=== PATIENT | female | born 1955 | race Caucasian/White ===

== ENCOUNTER 2024-02-23 15:25 | Emergency (ER) | payer MEDICARE, OTHER, SELFPAY ==
[2024-02-23 15:27] VITALS: BP 135/84
[2024-02-23 15:47] LABS: % Basophils 0.6 % (0-2); % Eosinophils 1.2 % (0-6); % Immature Granulocytes 0.4 % (0-0.5); % Lymphocytes 39.1 % (20.5-51.1); % Monocytes 8.1 % (1.7-9.3); % Neutrophils 50.6 % (42.2-75.2); Absolute Basophils 0.1 10^3/uL (0-0.2); Absolute Eosinophils 0.1 10^3/uL (0-0.7); Absolute Lymphocytes 3.2 10^3/uL (1.2-3.4); Absolute Monocytes 0.7 10^3/uL (0.1-0.6); Absolute Neutrophils 4.2 10^3/uL (1.4-6.5); Hematocrit 38.3 % (37.0-47.0); Hemoglobin 12.7 g/dL (12.0-16.0); Mean Corp Hgb Conc. 33.2 g/dL (33.0-37.0); Mean Corpuscular Hgb 28.5 pg (27.0-31.0); Mean Corpuscular Volume 86.1 fL (81.0-99.0); Mean Platelet Volume 9.2 fL (7.4-10.4); Nucleated Red Blood Cells % 0 %; Platelet Count 280 10^3/uL (130-400); Red Blood Cell Count 4.45 10^6/uL (4.20-5.40); Red Cell Dist. Width 13.9 % (11.5-14.5); White Blood Cell Count 8.3 10^3/uL (4.8-10.8)
[2024-02-23 16:00] LABS: ALT (SGPT) 18 U/L (0-35); AST (SGOT) 24 U/L (14-36); Albumin 4.4 g/dl (3.5-5.0); Alkaline Phosphatase 86 U/L (38-126); Blood Urea Nitrogen 23 mg/dl (7-17); Calcium 10.4 mg/dl (8.4-10.2); Carbon Dioxide 26 mmol/L (22-30); Chloride 101 mmol/L (98-107); Glucose 107 mg/dl (70-99); Potassium 4.2 mmol/L (3.5-5.1); Sodium 134 mmol/L (135-145); Total Bilirubin 0.5 mg/dl (0.2-1.3); Total Protein 6.7 g/dl (6.3-8.2); eGFR > 60.00
[2024-02-23 16:02] LABS: COVID-19 Antigen Negative (Negative)
[2024-02-23 16:05] VITALS: BP 142/94
--- NOTE | 2024-02-23 16:08 | ED.GENMED ---
History of Present Illness
General
Chief Complaint: Breathing Problem
Source: patient
Exam Limitations: none
Time Seen by Provider: 02/23/24 15:27
Nursing documentation reviewed up to this point in time: agreed with
Travel History
Have you had any contact with someone who has COVID-19?: No
Do you have any symptoms of coronavirus? Fever > 100 degrees, chills, cough, shortness of breath, sore throat, loss of taste or smell, muscle aches, or headache?: No
History of Present Illness
History of Present Illness:
pt is a 69 y/o F with h/o HTN, mild copd
here with sob x 1 week
pt says she has been noticing that over the past week, she ssems to be winded/fatigued with exertion
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 she doesn't really have help
she has been noticing that after bathing him etc she has needed to sit down and rest and this is unusual
she has never had this before
she also has had an intermittent chest pressure off and on the past week
today after getting him bathed, she was more sob than usual so she called 911.
her duaghter is with her now
she has not had fever, cough, leg swelling, syncope, pleuritic pain, h/o dvt/pe, nauesa, vomiting, diarpohesis
Past History
Past History
ED Past Medical History: Other (chronic sinus issues)
ED Past Surgical History: Gynecological (bleeding uterine polyp removed, hemorrhoids removed), Tonsilectomy and Other (nasal sinus surgery X 2)
Phy Exam
Physical Exam
Physical Exam:
GENERAL: Alert , in no apparent distress
EYE: pupils equal and reactive
NECK: Supple
ENT: o/p clr, mmm.
CARDIAC: Regular rate and rhythm .no edema
LUNGS: faint diminished throughout, no crackles ,no rhonchi, no dyspnea, speaking full sentences;
ABDOMEN: Soft, without focal tenderness, no r/g, no cvat, normal bowel sounds
NEUROLOGICAL: Alert and oriented, no focal neuro deficits
SKIN: Warm and dry, skin intact.
MUSCULOSKELETAL: No edema, well perfused. neg trevor's sign
PSYCH: Normal and appropriate interaction.; tearful when speaking about her stress
Scores
Heart Failure Risk
Heart Failure Risk Score: Not Applicable
Course
Orders/Labs/Results
Orders:
Orders
02/23/24 15:32
Electrocardiogram (*1) Urgent
Reason for Study: QTc Monitoring
02/23/24 15:33
EKG- Treatment ONCE
02/23/24 15:34
Complete Blood Count/With Diff Urgent
Comprehensive Metabolic Panel Urgent
Free T4 Urgent
TSH Reflex To Free T4 Urgent
Comment: ADD ON
02/23/24 15:37
COVID-19 Antigen Urgent
Source: Nasal Swab
D-Dimer Urgent
Influenza A+B Rapid Molecular Urgent
ALLAN Source: Nasal Swab
Specimen Description:
02/23/24 16:06
Add On- LAB Urgent
Tests Added?: BNP
02/23/24 16:10
Add On- LAB Urgent
Tests Added?: tsh reflex t4
02/23/24 16:49
CR Chest - 2 Views Urgent
Comment:
Reason For Exam: chest pressure, sob
02/23/24 17:08
NT-proBNP Routine
Troponin I Urgent
02/23/24 17:48
Ipratropium/Albuterol Sulfate [Duoneb] 3 ml INH R NOW ONE
Abnormal Lab Results
02/23/24
15:34
Absolute Monos (auto) 0.7 H 10^3/uL
(0.1-0.6)
Sodium 134 L mmol/L
(135-145)
BUN 23 H mg/dl
(7-17)
Glucose 107 H mg/dl
(70-99)
Calcium 10.4 H mg/dl
(8.4-10.2)
TSH (Reflex) 0.16 L uIU/ml
(0.47-4.68)
02/23/24 15:34
02/23/24 15:34
Vital Signs
Initial and Last Documented VS:
Initial Vital Signs
Temp Pulse Resp BP Pulse Ox
97.7 F 69 14 135/84 100
02/23/24 15:27 02/23/24 15:27 02/23/24 15:27 02/23/24 15:27 02/23/24 15:27
Last Documented Vital Signs
Temp Pulse Resp BP Pulse Ox
97.7 F 64 16 142/94 98
02/23/24 15:27 02/23/24 16:45 02/23/24 16:45 02/23/24 16:05 02/23/24 16:45
Comment
Comment:
ekg nsr, no st elevation, no depression, ramon pr, normal qrs, no t wave inversion
MDM/Problems Addressed
Differential Diagnosis Includes:
chf, copd, acs, PE
MDM/Problems Addressed:
69 y/o F with htn
here with exertional fatigue, mild chest pressure intermittently x 1 week, worse today after bathing her
pt says she has had the chest heaviness all week that comes and goes
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
he requires total care
she cannot trust anyone else to care for him like she does
she does have mild COPD but doesn't really take meds for it
pt has not had fever, chills, cough, leg swelling, h/o DVT/pe
looks very comfrotable
no distress
ekg normal
vitals stable
normal exam
no murmur
ekg normal
trop neg
bnp normal
d dimer neg
hg normal
at this point, unclear cause of her symptoms
reassured that she has hd symptoms like this before, neg stress tests (followed by [facility], hasn't had stress test recently)
i do think she is stressed
but should f/u with [facility], likely another outpatient stress/echo
will try duoneb, steroids to treat mild COPD
sh ehas been coughing/allergies since the sesasons changed and does have inhaler at home
also appreciate her low tsh
she is on synthroid 50 mcg
probably should be reduced
attempted to reach PCP but told pt to call
no thyroiditis/thyrotoxicosis
d/c home
*Critical Care Note
Total Time (30-74mins, 75-104mins- exclusive of procedures): Not Applicable
ED Attending Note
-
Portions of this chart may have been created with voice recognition software.� Occasional wrong word or��sound alike� substitutions may have occurred due to the inherent limitations of voice recognition software.
Discharge Plan
Departure
Patient Disposition: Home (Routine Discharge)
Date of Disposition: 02/23/24
Time of Disposition: 18:12
Patient with high blood pressure during this ER visit?: Yes
Condition: Fair
Covid-19: Not Applicable
Discharge Problem:
Dyspnea, Chest pain, COPD (chronic obstructive pulmonary disease)
Instructions: Chest Pain (DC), Exacerbation of COPD (DC), Chest Pain NON-[facility] Helper Maintenance Cleaning Follow Up
Prescriptions:
New
prednisone 20 mg tablet
40 mg PO DAILY Qty: 8 0RF
albuterol sulfate 90 mcg/actuation HFA aerosol inhaler
2 puff inhalation Q6H PRN (Reason: shortness of breath or wheezing) Qty: 6.7 0RF
prednisone 20 mg tablet
40 mg PO DAILY Qty: 8 0RF
No Action
ondansetron 4 mg tablet,disintegrating
4 mg PO Q8H PRN (Reason: nausea and vomiting) 7 Days Qty: 20 0RF
Referrals:
Edinson Avila MD [Family Provider] - Follow up in 2-3 days
Activity Restrictions/Additional Instructions:
You are not sure the cause of your chest pain, your EKG and troponin were negative. You had no signs of a blood clot. Your lungs were hyperinflated suggestive of your COPD. There is no pneumonia. Please make sure you follow-up with your
laboratory assistant though, call on Sunday, and may be time for another stress test.
In the meantime use your inhaler as directed
I refilled your albuterol inhaler 2 puffs every 4-6 hours as needed for shortness of breath or cough. Also start prednisone once a day starting tomorrow for the next 4 days.
Watch for worsening symptoms like chest pain that is more severe, passing out, leg swelling, worsening shortness of breath and return immediately for these. Otherwise follow-up with your both your family doctor and your laboratory assistant.
YOU NEED TO CALL YOUR DOCTOR ABOUT YOUR THYROID MEDICATION
HOLD IT FOR 2 DAYS AND SPEAK TO THEM SUNDAY ABOUT WHAT TO DO WITH THE DOSE
YOUR TSH WAS 0.16
Interventions
Interventions:
*Risk Screen - Suicide Last Done: 02/23/24 15:40
*General Assessment Last Done: 02/23/24 15:40
*Neglect/Abuse Screening Last Done: 02/23/24 15:40
ED- Fall Risk Assessment Last Done: 02/23/24 15:40
*ED COVID-19 Vaccine History Last Done: 02/23/24 18:29
*Nursing Disposition Last Done: 02/23/24 18:29
ED- Cardiac Assessment Last Done: 02/23/24 15:40
ED- Pulmonary Assessment Last Done: 02/23/24 15:40
Discharge Date and Time
Discharge Date/Time: 02/23/24 18:30
Print Language: [place]
[2024-02-23 17:39] LABS: Troponin I < 0.012 ng/ml
[2024-02-23 17:48] LABS: TSH Reflex To Free T4 0.16 uIU/ml (0.47-4.68)
[2024-02-23] MEDS: DUONEB 3 ML INH (18:00)
== END 2024-02-23 18:30 | disposition home or self-care (01) ==
LOC: EMR 15:25
PROVIDERS: Physician Assistant; EMERGENCY PHYSICIAN Emergency Medicine; FAMILY PHYSICIAN Internal Medicine
DX: R07.89 Other chest pain (principal); R06.09 Other forms of dyspnea; J44.9 Chronic obstructive pulmonary disease, unspecified; I10 Essential (primary) hypertension
CPT/HCPCS: 99285; 94640; 71046; 80053; 83880; 84439; 84443; 84484; 85025; 85379; 87502; 87811; 93005

== ENCOUNTER → 2024-05-13 13:15 | Outpatient (REF) | payer MEDICARE, OTHER, SELFPAY ==
[2024-05-13 16:38] LABS: TSH Reflex To Free T4 0.17 uIU/ml (0.47-4.68)
[2024-05-13 17:07] LABS: Free T4 1.45 ng/dl (0.78-2.19)
== END ==
LOC: HWLAB 13:15
PROVIDERS: ATTENDING PHYSICIAN Internal Medicine
DX: J45.40 Moderate persistent asthma, uncomplicated (principal); I10 Essential (primary) hypertension
CPT/HCPCS: 36415; 84439; 84443

== ENCOUNTER → 2024-06-19 15:11 | Outpatient (REF) | payer MEDICARE, OTHER, SELFPAY | LOC: HWRAD 15:11 | PROVIDERS: ATTENDING PHYSICIAN Internal Medicine | DX: E04.1 Nontoxic single thyroid nodule (principal) | CPT/HCPCS: 76536 ==

== ENCOUNTER → 2024-06-23 09:46 | Outpatient (REF) | payer MEDICARE, OTHER, SELFPAY | LOC: WDC 09:46 | PROVIDERS: ATTENDING PHYSICIAN Internal Medicine | DX: N64.4 Mastodynia (principal) | CPT/HCPCS: 76642; 77062; 77066 ==

== ENCOUNTER → 2024-08-22 13:24 | Outpatient (REF) | payer MEDICARE, OTHER, SELFPAY ==
[2024-08-22 16:09] LABS: Creatine Phosphokinase 67 U/L (30-135)
[2024-08-22 16:20] LABS: Free T3 2.86 pg/ml (2.77-5.27)
[2024-08-22 16:35] LABS: TSH Reflex To Free T4 0.23 uIU/ml (0.47-4.68)
[2024-08-22 16:49] LABS: Erythrocyte Sed Rate 8 mm/hour (0-20)
[2024-08-22 17:04] LABS: Free T4 1.24 ng/dl (0.78-2.19)
== END ==
LOC: HWLAB 13:24
PROVIDERS: ATTENDING PHYSICIAN Internal Medicine
DX: E03.9 Hypothyroidism, unspecified (principal)
CPT/HCPCS: 36415; 82550; 84439; 84443; 84481; 85652

== ENCOUNTER → 2024-10-27 14:14 | Outpatient (REF) | payer MEDICARE, OTHER, SELFPAY | LOC: HWRAD 14:14 | PROVIDERS: ATTENDING PHYSICIAN Internal Medicine; FAMILY PHYSICIAN Internal Medicine | DX: R10.9 Unspecified abdominal pain (principal) | CPT/HCPCS: 76700 ==

== ENCOUNTER → 2024-11-21 13:44 | Outpatient (REF) | payer MEDICARE, OTHER, SELFPAY | LOC: HWRCS 13:44 | PROVIDERS: ATTENDING PHYSICIAN Internal Medicine Cardiovascular Disease; FAMILY PHYSICIAN Internal Medicine | DX: I10 Essential (primary) hypertension (principal); I34.1 Nonrheumatic mitral (valve) prolapse | CPT/HCPCS: 93306 ==

== ENCOUNTER → 2025-02-03 08:59 | Outpatient (REF) | payer MEDICARE, OTHER, SELFPAY ==
[2025-02-03 11:46] LABS: Urine Albumin Negative (Neg - Trace); Urine Bilirubin Negative (Negative); Urine Character Clear (Clear); Urine Color Yellow; Urine Glucose Negative (Negative); Urine Ketone Negative (Negative); Urine Leukocyte Negative (Negative); Urine Nitrite Negative (Negative); Urine Occult Blood 1+ (Negative); Urine Urobilinogen Negative (Neg - 1+)
[2025-02-03 11:55] LABS: Urine Red Blood Cell 0-2 /HPF (0-2); Urine Squamous Cell 0-2 /LPF (Few); Urine White Cell 0-2 /HPF (0-5)
[2025-02-03 12:00] LABS: % Basophils 0.9 % (0-2); % Eosinophils 1.4 % (0-6); % Immature Granulocytes 0.3 % (0-0.5); % Lymphocytes 32.9 % (20.5-51.1); % Monocytes 9.7 % (1.7-9.3); % Neutrophils 54.8 % (42.2-75.2); Absolute Basophils 0.1 10^3/uL (0-0.2); Absolute Eosinophils 0.1 10^3/uL (0-0.7); Absolute Lymphocytes 2.1 10^3/uL (1.2-3.4); Absolute Monocytes 0.6 10^3/uL (0.1-0.6); Absolute Neutrophils 3.5 10^3/uL (1.4-6.5); Hematocrit 40.8 % (37.0-47.0); Hemoglobin 13.1 g/dL (12.0-16.0); Mean Corp Hgb Conc. 32.1 g/dL (33.0-37.0); Mean Corpuscular Hgb 28.1 pg (27.0-31.0); Mean Corpuscular Volume 87.6 fL (81.0-99.0); Mean Platelet Volume 9.5 fL (7.4-10.4); Nucleated Red Blood Cells % 0 %; Platelet Count 277 10^3/uL (130-400); Red Blood Cell Count 4.66 10^6/uL (4.20-5.40); Red Cell Dist. Width 13.3 % (11.5-14.5); White Blood Cell Count 6.4 10^3/uL (4.8-10.8)
[2025-02-03 12:21] LABS: ALT (SGPT) 27 U/L (0-35); AST (SGOT) 28 U/L (14-36); Albumin 4.5 g/dl (3.5-5.0); Alkaline Phosphatase 100 U/L (38-126); Blood Urea Nitrogen 19 mg/dl (7-17); Calcium 10.3 mg/dl (8.4-10.2); Carbon Dioxide 28 mmol/L (22-30); Chloride 105 mmol/L (98-107); Glucose 108 mg/dl (70-99); Potassium 4.7 mmol/L (3.5-5.1); Sodium 139 mmol/L (135-145); Total Bilirubin 0.6 mg/dl (0.2-1.3); Total Protein 6.6 g/dl (6.3-8.2); eGFR > 60.00
== END ==
LOC: RAD 08:59
PROVIDERS: FAMILY PHYSICIAN Internal Medicine
DX: R35.0 Frequency of micturition (principal); R10.31 Right lower quadrant pain
CPT/HCPCS: 76705; 76775; 80053; 81003; 81015; 85025; 87086

== ENCOUNTER → 2025-04-28 12:48 | Outpatient (REF) | payer MEDICARE, OTHER, SELFPAY ==
[2025-04-28 16:02] LABS: Hematocrit 40.1 % (37.0-47.0); Hemoglobin 12.7 g/dL (12.0-16.0); Mean Corp Hgb Conc. 31.7 g/dL (33.0-37.0); Mean Corpuscular Volume 89.7 fL (81.0-99.0); Nucleated Red Blood Cells % 0 %; Platelet Count 315 10^3/uL (130-400); Red Cell Dist. Width 14.0 % (11.5-14.5)
[2025-04-28 16:02] LABS: Urine Character Clear (Clear)
[2025-04-28 16:16] LABS: ALT (SGPT) 22 U/L (0-35); AST (SGOT) 25 U/L (14-36); Albumin 4.6 g/dl (3.5-5.0); Alkaline Phosphatase 83 U/L (38-126); Blood Urea Nitrogen 25 mg/dl (7-17); Calcium 10.2 mg/dl (8.4-10.2); Carbon Dioxide 28 mmol/L (22-30); Chloride 103 mmol/L (98-107); Glucose 88 mg/dl (70-99); Potassium 5.3 mmol/L (3.5-5.1); Sodium 135 mmol/L (135-145); Total Protein 6.9 g/dl (6.3-8.2); eGFR > 60.00
[2025-04-29 07:32] LABS: Glycohemoglobin (HgbA1c) 5.7 % (4.0-5.6)
== END ==
LOC: HWLAB 12:48
DX: R39.9 Unspecified symptoms and signs involving the genitourinary system (principal); R10.30 Lower abdominal pain, unspecified; R35.0 Frequency of micturition; K86.89 Other specified diseases of pancreas
CPT/HCPCS: 36415; 80053; 81003; 83036; 85025; 87086

== ENCOUNTER → 2025-05-05 13:35 | Outpatient (REF) | payer MEDICARE, OTHER, SELFPAY | LOC: RAD 13:35 | PROVIDERS: FAMILY PHYSICIAN Nurse Practitioner Family | DX: R10.30 Lower abdominal pain, unspecified (principal); R35.0 Frequency of micturition; M54.41 Lumbago with sciatica, right side; M54.42 Lumbago with sciatica, left side | CPT/HCPCS: 74177; Q9967 ==

== ENCOUNTER → 2025-07-01 15:00 | Outpatient (REF) | payer MEDICARE, OTHER, SELFPAY | LOC: HWRAD 15:00 | PROVIDERS: ATTENDING PHYSICIAN Nurse Practitioner Family | DX: M51.26 Other intervertebral disc displacement, lumbar region (principal) | CPT/HCPCS: 72110 ==

== ENCOUNTER → 2025-07-07 09:29 | Outpatient (REF) | payer MEDICARE, OTHER, SELFPAY ==
[2025-07-07 14:08] LABS: Blood Urea Nitrogen 21 mg/dl (7-17); Calcium 10.0 mg/dl (8.4-10.2); Carbon Dioxide 26 mmol/L (22-30); Chloride 105 mmol/L (98-107); Glucose 100 mg/dl (70-99); HDL Cholesterol 82 mg/dl; LDL Cholesterol, Calculated 98 mg/dl; Potassium 4.9 mmol/L (3.5-5.1); Sodium 136 mmol/L (135-145); Very Low Density Lipoprotein 15 mg/dl (0-30); eGFR > 60.00
== END ==
LOC: HWLAB 09:29
PROVIDERS: ATTENDING PHYSICIAN Nurse Practitioner Family
DX: E03.9 Hypothyroidism, unspecified (principal); Z00.00 Encounter for general adult medical examination without abnormal findings; J45.40 Moderate persistent asthma, uncomplicated; J44.9 Chronic obstructive pulmonary disease, unspecified; I10 Essential (primary) hypertension; K21.9 Gastro-esophageal reflux disease without esophagitis; M51.26 Other intervertebral disc displacement, lumbar region; M79.601 Pain in right arm; K86.89 Other specified diseases of pancreas; E87.5 Hyperkalemia; Z13.31 Encounter for screening for depression
CPT/HCPCS: 36415; 80048; 80061; 84443

== ENCOUNTER → 2025-07-30 09:09 | Outpatient (REF) | payer MEDICARE, OTHER, SELFPAY | LOC: WDC 09:09 | PROVIDERS: ATTENDING PHYSICIAN Nurse Practitioner Family | DX: N64.4 Mastodynia (principal) | CPT/HCPCS: 76642; 77063; 77067 ==